=== PATIENT | female | born 1955 | race Two or more races ===

== ENCOUNTER 2017-05-18 18:31 | Emergency (ER) | payer MEDICAID, OTHER ==
[~2017-05-18] VITALS: Ht 165.1 cm; Wt 75.0 kg
[~2017-05-18 18:31] MED LIST: ASPI81TA35; GLIP10TA3; IBUP-2030; LORA10TA; LOSA50TA3; METF1000; SIMV40TA5
[2017-05-18 18:49] VITALS: BP 164/87
== END 2017-05-18 23:45 | disposition home or self-care (01) ==
LOC: ER 19:30
DX: L30.9 Dermatitis, unspecified (principal); I10 Essential (primary) hypertension; Z79.82 Long term (current) use of aspirin; Z90.49 Acquired absence of other specified parts of digestive tract
CPT/HCPCS: 99283

== ENCOUNTER 2018-10-16 22:30 | Emergency (ER) | payer MEDICARE, MEDICAID ==
[~2018-10-16] VITALS: Ht 152.4 cm; Wt 68.5 kg
[~2018-10-16 22:30] MED LIST changes: -ASPI81TA35; +ASPI81TA47
[2018-10-16 22:48] VITALS: BP 148/86
[2018-10-17] MEDS ORDERED: THROMBIN (BOVINE) 5000 UNITS/VIAL TOP ONE (00:30)
== END 2018-10-17 03:00 | disposition home or self-care (01) ==
LOC: ER 23:32
DX: K06.8 Other specified disorders of gingiva and edentulous alveolar ridge (principal); E11.9 Type 2 diabetes mellitus without complications; E78.00 Pure hypercholesterolemia, unspecified; I10 Essential (primary) hypertension; Z98.890 Other specified postprocedural states; Z90.49 Acquired absence of other specified parts of digestive tract; Z79.899 Other long term (current) drug therapy; Z88.8 Allergy status to other drugs, medicaments and biological substances
CPT/HCPCS: 99282; J3490

== ENCOUNTER 2022-08-02 23:06 | Emergency (ER) | payer OTHER, MEDICAID ==
[~2022-08-02] VITALS: Ht 152.4 cm; Wt 67.0 kg
[~2022-08-02 23:06] MED LIST changes: +SIMV-46; -SIMV40TA5
[2022-08-03] MEDS ORDERED: MECLIZINE 25MG TABLET PO ONE
[2022-08-03] MEDS ORDERED: ONDANSETRON HCL 4MG/2ML INJ IV ONE
[2022-08-03] MEDS ORDERED: SODIUM CHLORIDE 0.9% 1,000 ML IV ONE
[2022-08-03 00:16] LABS: BASOPHILS % 0.5 % (0.0-2.0); EOSINOPHILS % 1.2 % (0.0-5.0); HEMATOCRIT. 35.8 % (36.0-48.0); HEMOGLOBIN. 11.6 g/dL (12.0-16.0); LYMPHOCYTES % 14.2 % (20.0-50.0); MEAN CORPUSCULAR HEMOGLOBIN 27.7 pg (28.0-32.0); MEAN CORPUSCULAR VOLUME 85.4 fL (81.0-99.0); MEAN PLATELET VOLUME 8.4 fl (7.4-10.4); MONOCYTES % 5.9 % (2.0-8.0); NEUTROPHILS % 78.2 % (40.0-76.0); PLATELET 236 x1000/uL (130-400); RED CELL DISTRIBUTION WIDTH 14.3 % (11.6-14.6)
[2022-08-03 00:21] LABS: CHLORIDE 105 mEq/L (98-107)
[2022-08-03 05:16] VITALS: BP 120/64
== END 2022-08-03 06:06 | disposition left against medical advice (07) ==
LOC: ER 23:06 → EDBEDREQ 08-03 05:29 → ER 08-03 06:06 → CANBEDREQ 08-05 00:15
DX: R42 Dizziness and giddiness (principal); R94.31 Abnormal electrocardiogram [ECG] [EKG]; I51.7 Cardiomegaly; I10 Essential (primary) hypertension; E78.00 Pure hypercholesterolemia, unspecified; E11.9 Type 2 diabetes mellitus without complications; Z90.49 Acquired absence of other specified parts of digestive tract
CPT/HCPCS: 36415; 70450; 71045; 80053; 84484; 85025; 93005; 96361; 96374; 99285; J2405; J7030; J8597